=== PATIENT | female | born 1970 | race Caucasian/White ===

== ENCOUNTER 2017-11-18 12:32 | Emergency (ER) | payer OTHER ==
[~2017-11-18] VITALS: Ht 170.2 cm; Wt 68.1 kg
[~2017-11-18 12:32] MED LIST: CEL20 PO; ESKALITH300 M1 PO; LAMICTAL25 M1 PO; SEROQUEL50 MG PO; SYN5 PO
[2017-11-18 15:21] VITALS: BP 121/79
== END 2017-11-18 15:21 | disposition home or self-care (01) ==
LOC: ED 12:32
DX: K64.9 Unspecified hemorrhoids (principal); K62.89 Other specified diseases of anus and rectum
CPT/HCPCS: J1885